=== PATIENT | male | born 1975 | race Caucasian/White ===

== ENCOUNTER 2017-08-11 18:23 | Emergency (ER) | payer OTHER ==
[~2017-08-11] VITALS: Ht 188 cm; Wt 105.9 kg
[2017-08-11 18:25] VITALS: BP 126/78
[2017-08-11] MEDS ORDERED: KETOROLAC 30 MG/1 ML IM ONE (19:00)
[2017-08-11] MEDS ORDERED: KETOROLAC 30 MG/1 ML ONE (19:01)
[2017-08-11] MEDS ORDERED: DIAZEPAM 5 MG TABLET ONE (19:11)
[2017-08-11] MEDS ORDERED: OXYcodone/APAP 5/325MG TABLET ONE (19:11)
[2017-08-11] MEDS ORDERED: DIAZEPAM 5 MG TABLET PO ONE (19:30)
[2017-08-11] MEDS ORDERED: OXYcodone/APAP 5/325MG TABLET PO ONE (19:30)
== END 2017-08-11 19:58 | disposition home or self-care (01) ==
LOC: ED 19:20
DX: S33.5XXA Sprain of ligaments of lumbar spine, initial encounter (principal); X58.XXXA Exposure to other specified factors, initial encounter; Y93.54 Activity, bowling; Y92.89 Other specified places as the place of occurrence of the external cause; Y99.8 Other external cause status
CPT/HCPCS: 96372; 99283; J1885